=== PATIENT | female | born 1945 | race Caucasian/White ===

== ENCOUNTER 2017-12-23 13:51 | Outpatient (CLI) | payer MEDICARE, OTHER | END 2017-12-23 13:52 | disposition home or self-care (01) | LOC: BICMAMMO 13:51 | PROVIDERS: ATTEND Internal Medicine | DX: Z12.31 Encounter for screening mammogram for malignant neoplasm of breast (principal) | CPT/HCPCS: 77063; 77067 ==

== ENCOUNTER 2019-06-28 13:00 | Outpatient (CLI) | payer MEDICARE ==
--- NOTE | 2019-06-28 13:50 | MMO ---
Bilateral MAMMO Bilat Screen [facility]. CLINICAL HISTORY: Patient is 74 years old and is seen for screening. The patient has no family history of breast cancer. The patient has no personal history of cancer. VIEWS: The views performed were: bilateral craniocaudal with tomosynthesis and bilateral mediolateral oblique with tomosynthesis. FILMS COMPARED: The present examination has been compared to prior imaging studies performed at [facility] on 07/28/2014, 08/22/2015, 10/14/2016 and 12/23/2017. This study has been interpreted with the assistance of computer-aided detection. MAMMOGRAM FINDINGS: There are scattered fibroglandular densities. There are stable benign appearing calcifications seen in both breasts. There are no suspicious masses, suspicious calcifications, or new areas of architectural distortion. IMPRESSION: THERE IS NO MAMMOGRAPHIC EVIDENCE OF MALIGNANCY. A ROUTINE FOLLOW-UP MAMMOGRAM IN 1 YEAR IS RECOMMENDED. THE RESULTS OF THIS EXAM WERE SENT TO THE PATIENT. ACR BI-RADS Category 2 - Benign finding MAMMOGRAPHY NOTE: 1. A negative mammogram report should not delay a biopsy if a dominant of clinically suspicious mass is present. 2. Approximately 10% to 15% of breast cancers are not detected by mammography. 3. Adenosis and dense breasts may obscure an underlying neoplasm. Reported by: ASIM GARCÍA MD Electonically Signed: [id number]
== END 2019-06-28 13:01 | disposition home or self-care (01) ==
LOC: BICMAMMO 13:00
PROVIDERS: ATTEND Internal Medicine
DX: Z12.31 Encounter for screening mammogram for malignant neoplasm of breast (principal)
CPT/HCPCS: 77063; 77067

== ENCOUNTER 2020-03-20 11:34 | Emergency (ER) | payer MEDICARE, OTHER ==
[2020-03-21 12:49] LABS: SARS-CoV-2 MS2 Positive; SARS-CoV-2 N Gene Negative; SARS-CoV-2 S Gene Negative; SARS-CoV-2 orf1ab Negative
== END 2020-03-20 13:00 | disposition home or self-care (01) ==
LOC: ERS 11:34
DX: Z20.828 Contact with and (suspected) exposure to other viral communicable diseases (principal)
CPT/HCPCS: 99283; U0003; 87635

== ENCOUNTER 2020-04-15 16:08 | Observation (INO) | payer MEDICARE, OTHER ==
[~2020-04-15 16:08] MED LIST: Iopamidol-370 76% 500 ML 1 ML ONE
[2020-04-15 17:06] LABS: #Eosinphils 0.1 thou/uL (0.0-0.7); #Lymphocytes 1.7 thou/uL (1.20-3.40); #Monocytes 0.6 thou/uL (0.11-0.59); #Neutrophils 11.1 thou/uL (1.40-6.50); %Basophils 0.4 % (0.0-1.0); %Eosinophils 0.9 % (0.0-10.0); %Lymphocytes 12.3 % (21.0-51.0); %Monocytes 4.3 % (0.0-10.0); %Neutrophils 82.2 % (42.0-75.0); Hemoglobin 15.4 g/dL (12.0-16.0); Mean Corpuscular HGB CONC 33.8 g/dL (32.0-36.0); Mean Corpuscular Volume 91.7 fL (78.0-98.0); Mean Platelet Volume 7.3 fL (7.4-10.4); Platelet Count 282 thou/uL (130-400); RBC Distribution Width 11.9 % (11.5-14.5); Red Blood Cell (RBC) Count 4.97 mill/uL (4.20-5.40); White Blood Cell (WBC) Count 13.5 thou/uL (4.8-10.8)
[2020-04-15] MEDS ORDERED: Nitroglycerin 2% Ointment 1 INCH/1 GM Packet ONE (17:21)
[2020-04-15] MEDS ORDERED: Aspirin 325 MG TAB ONE (17:21)
[2020-04-15 17:25] LABS: Bacteria/HPF 1+ HPF (None Seen); Bilirubin Negative (Negative); Blood, Urine 1+ (Negative); Clarity Clear (Clear); Glucose, Urine (Dipstick) 50 mg/dL (Negative); Ketone, Urine Negative (Negative); Leukocyte Negative Leu/uL (Negative); Nitrite Negative (Negative); Protein, Urine (Dipstick) Negative (Neg-Trace); Squamous Epithelial None Seen HPF (0-3); Urobilinogen Normal mg/dL (Less than 2); WBC/HPF 0-3 HPF (0-3); pH, Urine 7.5 (5.0-9.0)
[2020-04-15 17:27] LABS: ALT (SGPT) 46 U/L (8-55); AST (SGOT) 22 U/L (5-34); Albumin 4.7 g/dL (3.4-4.8); Alkaline Phosphatase 150 U/L (40-110); Anion Gap 11 mmol/L (10-20); BUN (Urea Nitrogen) 12 mg/dL (9.8-20.1); Bilirubin, Total 0.5 mg/dL (0.2-1.2); Calc. Creatinine Clearance 0 mL/min (70-130); Calcium 10.9 mg/dL (7.8-10.44); Carbon Dioxide 30 mmol/L (23-31); Chloride 100 mmol/L (98-107); Estimated GFR-MDRD 68; Globulin 2.9 g/dL (2.4-3.5); Glucose 166 mg/dL (83-110); Potassium 4.2 mmol/L (3.5-5.1); Protein, Total 7.6 g/dL (6.0-8.3); Sodium 137 mmol/L (136-145)
[2020-04-15 17:33] LABS: Lipase 18 U/L (8-78)
[2020-04-15 17:34] LABS: CK (CPK) 36 U/L (29-168)
--- NOTE | 2020-04-15 17:43 | RAD ---
EXAM: Single view of the chest HISTORY: Chest pain and lower abdominal pain COMPARISON: None FINDINGS: Single view of the chest shows an enlarged cardiomediastinal silhouette. Atherosclerotic c alcifications are seen in the aorta. There is no evidence of consolidation, mass, or pleural effusion. The bones are unremarkable IMPRESSION: No evidence of acute cardiopulmonary disease
[2020-04-15] MEDS ORDERED: hydrALAZINE 20 MG/ML VIAL ONE (17:51)
[2020-04-15 18:17] LABS: CKMB 1.4 ng/mL (0-6.6)
--- NOTE | 2020-04-15 18:50 | CT ---
EXAM: CTA of the chest HISTORY: Elevated d-dimer and abdominal pain. Hypertension COMPARISON: None TECHNIQUE: Multiple contiguous axial images were obtained a CTA of the chest with contrast per pulmon ilda embolism protocol. 3-D oblique MIP reformats and direct coronal reformats were performed. FINDINGS: HEART: Normal in size with hypertrophy of the left ventricular wall. Callus cages are seen in the cor onary arteries and aorta. PULMONARY ARTERIES: Normal in caliber without filling defects to suggest pulmonary emboli. MEDIASTINUM: No hilar or mediastinal lymphadenopathy. There is a small hiatal hernia LUNGS: No focal infiltrates or masses. PLEURAL SPACE: No pleural effusion or pneumothorax. CHEST WALL SOFT TISSUES: Unremarkable VISUALIZED OSSEOUS STRUCTURES: Degenerative changes in the spine. VISUALIZED SUBDIAPHRAGMATIC STRUCTURES: Diffuse fatty infiltration of the liver. Status post cholecys tectomy. IMPRESSION: 1. No evidence of pulmonary thromboembolism 2. Fatty liver 3. Hiatal hernia
[2020-04-15 20:17] LABS: Troponin I 0.204 ng/mL (< 0.028)
[2020-04-15] MEDS ORDERED: Enoxaparin Sodium 80 MG/0.8 ML SYRINGE ONE (20:23)
[2020-04-15] MEDS ORDERED: Acetaminophen 325 MG TAB PO PRN (20:35)
[2020-04-15] MEDS ORDERED: Acetaminophen 650 MG Suppository PR PRN (20:35)
[2020-04-15] MEDS ORDERED: hydrALAZINE 20 MG/ML VIAL SLOW IVP PRN (20:41)
--- NOTE | 2020-04-15 21:54 | HP ---
TIME OF ASSESSMENT: 1899 PRIMARY CARE PHYSICIAN: Dr. Issa Fischer. CHIEF COMPLAINT: Fatigue and vomiting. HISTORY OF PRESENT ILLNESS: Ms. Posey is a 74-year-old woman, who presented to the emergency department with nausea and vomiting that started earlier today and reports feeling completely tired. The patient states she felt she might be coming down with a urine infection due to discomfort in the left lower abdominal region since yesterday. Her pain was radiating over to the right side earlier today, but has since subsided. She reports having suprapubic discomfort when urinating as well, but did not note any hematuria. Denies any fevers. The patient states she has had a UTI in the past, but it has been several years. Earlier today, she has suddenly became extremely tired and then felt nauseated. She reports vomiting 3 times, but denies having any abdominal discomfort or feeling unwell when she vomited. No hematemesis. Denies any unusual changes with her stools recently. The patient thought her symptoms were associated with UTI and therefore opted to come into the emergency department. Her was unable to bring her due to having severe peripheral neuropathy and therefore she came in via ambulance. The patient was noted to have hypertensive urgency with a systolic blood pressure in the 250s per vitals taken by EMS. On arrival to the emergency department, she had a blood pressure of 212/97. Her blood pressure has since normalized and is now 164/74. She was given hydralazine 10 mg IV, also started on Nitro-Bid and given 324 mg of aspirin due to laboratory studies being notable for an indeterminate troponin of 0.065. Second troponin was slightly further elevated at 0.04, which prompted ED to administer Lovenox 1 mg/kg. The patient was given 500 mL of normal saline. Of note, EKG done in the emergency department showed sinus bradycardia with a rate of 51. No ST changes or T-wave abnormalities. Laboratory studies were also notable for a white count of 13.5, hemoglobin 15.4, hematocrit 45.5, platelets , neutrophils 82.2%. D-dimer slightly elevated at 0.49. Calcium 10.9, glucose 166, alkaline phosphatase 115. BNP 76.2. Lipase 18. LFTs unremarkable. CT angiogram of the chest was done showing no evidence of PE. She was noted to have a fatty liver and a hiatal hernia. Urinalysis showed 1+ blood, 7 to 10 red blood cells, and 1+ bacteria. Otherwise, no nitrites or leukocyte esterase and no white blood cells. PAST MEDICAL HISTORY: 1. Arthritis. 2. History of UTIs. 3. Hip pain. 4. Hypertension. PAST SURGICAL HISTORY: 1. Cholecystectomy. 2. Hysterectomy. SOCIAL HISTORY: The patient reports social drinking. Denies any tobacco use or illicit drug use. PHYSICAL EXAMINATION: GENERAL: The patient appears well developed, well nourished. She is in no acute distress. She is found resting comfortably on the stretcher. VITAL SIGNS: Temperature 98.7, pulse 72, blood pressure 164/74, respirations 12, and O2 saturation 100% on room air. HEENT: Normocephalic and atraumatic. Pupils are equal, round, and reactive to light. No scleral icterus. Oropharynx is clear. NECK: Supple. LUNGS: Clear to auscultation bilaterally without any wheezes, rales, or rhonchi. CARDIAC: Regular rate and rhythm without audible murmurs, rubs, or gallops. ABDOMEN: Soft, nontender, nondistended. Normoactive bowel sounds present. No guarding. No rigidity. No renal angle tenderness. EXTREMITIES: No lower leg swelling, no edema. NEUROLOGIC: Alert and oriented x3. SKIN: Warm and dry. INVESTIGATIONS: As mentioned above in the HPI. IMPRESSION AND PLAN: Ms. Posey is a 74-year-old woman, who is being admitted for the management of the following. 1. Hypertensive urgency. Blood pressure is significantly improved with Nitro-Bid and hydralazine. Blood pressure has normalized and patient is asymptomatic at present. We will continue to monitor blood pressure and reconcile home medications once verified. 2. Elevated troponin. Second troponin further bumped to 0.204. It appears the ED physician has started Lovenox 1 mg/kg. The patient denies ever experiencing any chest pain. EKG unremarkable. She will need continuous cardiac monitoring. We will continue to trend her troponin. We will plan to keep her n.p.o. after midnight. We will place a consultation with Cardiology for review in the morning. 3. Nausea and vomiting. Has resolved. We will continue Zofran p.r.n. LFTs unremarkable including lipase. 4. Hypertension. As mentioned above. We will monitor blood pressure and reconcile home medications once verified. 5. Gastrointestinal prophylaxis. We will give famotidine. 6. Deep venous thrombosis prophylaxis. Walking program consulted and mechanical SCDs ordered. 7. Code status, full. Surrogate decision maker is her Mariano Posey. Case discussed with attending, who agrees with plan of care as described above. Job ID: [id number]
[2020-04-15 22:33] VITALS: BMI 29.5
[2020-04-15] MEDS ORDERED: Famotidine 20 MG TAB PO SCH (22:45)
[2020-04-16 04:46] LABS: #Lymphocytes 2.9 thou/uL (1.20-3.40); #Monocytes 0.9 thou/uL (0.11-0.59); #Neutrophils 6.9 thou/uL (1.40-6.50); %Basophils 0.4 % (0.0-1.0); %Eosinophils 0.4 % (0.0-10.0); %Monocytes 8.5 % (0.0-10.0); %Neutrophils 63.7 % (42.0-75.0); Hemoglobin 13.3 g/dL (12.0-16.0); Mean Corpuscular HGB CONC 34.6 g/dL (32.0-36.0); Mean Corpuscular Volume 92.4 fL (78.0-98.0); Mean Platelet Volume 7.6 fL (7.4-10.4); Platelet Count 236 thou/uL (130-400); Red Blood Cell (RBC) Count 4.15 mill/uL (4.20-5.40); White Blood Cell (WBC) Count 10.8 thou/uL (4.8-10.8)
[2020-04-16 05:06] LABS: Anion Gap 12 mmol/L (10-20); BUN (Urea Nitrogen) 14 mg/dL (9.8-20.1); Calc. Creatinine Clearance 89 mL/min (70-130); Calcium 10.1 mg/dL (7.8-10.44); Carbon Dioxide 24 mmol/L (23-31); Chloride 104 mmol/L (98-107); Estimated GFR-MDRD 86; Glucose 93 mg/dL (83-110); Potassium 3.7 mmol/L (3.5-5.1); Sodium 136 mmol/L (136-145)
[2020-04-16 05:30] LABS: CKMB 1.5 ng/mL (0-6.6)
--- NOTE | 2020-04-16 08:19 | PDOC.HOSPP ---
- Subjective Encounter Date: 04/16/20 Encounter Time: 08:06 Subjective: no chest pain or sob - Objective Vital Signs & Weight: Vital Signs (12 hours) Temp Pulse Resp BP Pulse Ox 04/16/20 07:50 98.4 F 66 15 137/64 04/16/20 03:28 99.1 F 68 16 130/63 94 L 04/16/20 00:00 75 04/15/20 22:18 98.9 F 74 16 150/72 H 95 Weight Weight 171 lb 12.8 oz I&O: 04/15/20 04/16/20 04/17/20 06:59 06:59 06:59 Intake Total 480 Output Total 550 Balance -70 Result Diagrams: 04/16/20 03:52 04/16/20 03:52 - Exam General Appearance: awake alert Neck: no JVD Heart: RRR, no murmur Respiratory: CTAB Gastrointestinal: non-tender, normal bowel sounds Extremities: no edema Hosp A/P (1) Hypertensive urgency Code(s): I16.0 - HYPERTENSIVE URGENCY Status: Acute (2) Elevated troponin I level Code(s): R79.89 - OTHER SPECIFIED ABNORMAL FINDINGS OF BLOOD CHEMISTRY Status : Chronic (3) Essential tremor Code(s): G25.0 - ESSENTIAL TREMOR Status: Chronic (4) Pelvic and perineal pain Code(s): R10.2 - PELVIC AND PERINEAL PAIN Status: Acute - Plan cardiology eval pending selected home meds
[2020-04-16] MEDS ORDERED: Propranolol HCl LA 60 MG CAP PO SCH (09:00)
[2020-04-16] MEDS ORDERED: Famotidine 20 MG TAB PO SCH (09:00)
[2020-04-16] MEDS ORDERED: Calcium Carbonate 600 MG TAB PO SCH (09:00)
[2020-04-16] MEDS ORDERED: Venlafaxine HCl XR 75 MG CAP PO SCH (09:00)
[2020-04-16 09:48] LABS: CKMB 1.2 ng/mL (0-6.6)
[2020-04-16] MEDS ORDERED: Regadenoson 0.4 MG/5 ML SYRINGE ONE (11:08)
[2020-04-16 11:55] LABS: SARS-CoV-2 MS2 Positive; SARS-CoV-2 N Gene Negative; SARS-CoV-2 S Gene Negative; SARS-CoV-2 by NAA Not Detected (NotDetected); SARS-CoV-2 orf1ab Negative
[2020-04-16 14:40] VITALS: BP 183/84; TEMP 98.1
--- NOTE | 2020-04-16 15:03 | NM ---
CARDIAC SPECT: CLINICAL HISTORY: 74-year-old female with chest pain and hypertension. TECHNIQUE: A myocardial perfusion scan was performed using the single isotope one day protocol with technetium-9 9m sestamibi. 10 mCi were injected intravenously for the rest exam followed by 27 mCi for the stress exam. Pharmacologic stress with Lexiscan was monitored and interpreted by Ilda Winkler NP. FINDINGS: Homogeneous tracer distribution is seen in the myocardial segments on stress and rest images without fixed or reversible defects. GATED SPECT LVEF: 91%. WALL MOTION EXAM: Normal. IMPRESSION: Normal myocardial perfusion scan. POS: MYLES
[2020-04-16] MEDS: Primidone 50 MG TAB PO SCH ×2 (17:37→17:39)
--- NOTE | 2020-04-16 18:10 | CON ---
DATE OF CONSULTATION: PRIMARY CARE DOCTOR: Dr. Issa Fischer. PRIMARY FOAM DISPENSER: Dr. Eloise Lancaster. PRIMARY GI DOCTOR: Dr. Ocampo. PRIMARY ORTHO DOCTOR: Dr. Strickland. REASON FOR CARDIOLOGY CONSULT: Chest pain and elevated troponin. HISTORY OF PRESENT ILLNESS: Ms. Posey is a very present 74-year-old female with significant history of hypertension, hyperlipidemia, GERD, and essential tremor with propranolol. The patient was doing relatively well until yesterday , the patient started having burning sensation to the lower part of abdomen, especially feeling burning when she urinates since last Thursday. Also, the patient was feeling very tired all day yesterday, especially after she vomited 3 times yesterday. Due to that reasons, the patient decided to present to the emergency department for further evaluation. The patient was found to have elevated blood pressure. After she received Nitropaste and hydralazine, the patient's Systolic blood pressure went down to 140 to 160s. The patient denies chest pain, heaviness, tightness, shortness of breath, dizziness, lightheadedness, or any other cardiac complaints during the episode. The patient does not check the vital signs at home. However, the patient had annual physical checkup by Dr. Fischer a couple of weeks ago. The patient was told that the patient's vital signs, lab, and everything were within normal range. She was never seen by a cook larder before. She never had a stress test or echo in the past. At this moment, the patient denied any cardiac complaints. She continued having this mild discomfort in the lower abdomen area. MEDICAL HISTORY: Hypertension, hyperlipidemia, GERD, essential tremor, the patient is taking propranolol for quite some time. SURGICAL HISTORY: The patient has history of left ankle fracture repair, cholecystectomy, and partial hysterectomy. FAMILY HISTORY: There is significant cardiac family history in the maternal side. The patient's mother had a CABG at the age of 81. The patient's uncle on the maternal side had a CABG at age of 50. The patient's grandmother on the maternal side has a CVA. SOCIAL HISTORY: She is . She has 2 children, who are living well. No congenital problem. She drinks occasional wine, like once a week most. She denied tobacco or illicit drug abuse. She exercises at least twice a day with a color strainer. Last exercise was last week without any cardiac complaints. ALLERGIES: NO KNOWN DRUG ALLERGIES. HOME MEDICATIONS: 1. Aspirin 81 mg once a day. 2. Propranolol 120 mg once a day for tremor. 3. Mobic 7.5 mg once a day. 4. Dexilant 30 mg once a day. 5. Atorvastatin 40 mg once a day. 6. Primidone 50 mg three times a day. 7. Mirabegron 50 mg at night. 8. Lisinopril 10 mg once a day. 9. Desvenlafaxine 50 mg once a day. 10. Calcium 600 mg twice a day. REVIEW OF SYSTEMS: A 12-point review of systems negative unless otherwise mentioned in HPI. PHYSICAL EXAMINATION: VITAL SIGNS: Blood pressure 137/64, temperature 98.4, pulse is 66 and sinus rhythm, respiratory rate is 15. GENERAL: The patient is alert and oriented x4, not in acute distress. HEAD: Normocephalic and atraumatic. EYES: Extraocular muscle movements are intact. ENT AND MOUTH: Oral and nasal mucosa moist without lesion. NECK: Supple. Normal range of motion. No JVD. Carotid pulses are present without bruit or thrill. RESPIRATORY: Clear to auscultate bilaterally. No wheezing, rales, or rhonchi noted. CARDIOVASCULAR: Regular rate and rhythm. Normal S1 and S2. There is no S3 or S4. No significant murmur, heaves, or thrill noted. 2+ pulses in bilateral upper and lower extremities. No edema in the lower extremities. ABDOMEN: Soft, nontender. No mass to palpate except on palpation in the lower extremities, the patient continued having discomfort, mild discomfort with palpation. SKIN: Warm and dry. No lesion, rash, or erythema noted. MUSCULOSKELETAL: The patient was able to move all extremities. The patient denied claudication. NEUROLOGIC: The patient is alert and oriented x4. Nonfocal. PSYCHIATRIC: The patient's mood is appropriate. LABORATORY DATA: WBC 10.8, hemoglobin 13.3, hematocrit 38.3, platelets 236. D-dimer 0.49. Sodium 136, potassium 3.7, BUN 14, creatinine 0.67, glucose 93, calcium 10.1, magnesium 1.7, AST 22, ALT 46. CK-MB 1.5 and 1.2. Troponins 0.065, 0.204, 0.250, 0.213, and 0.173. UA is negative. COVID-19 is negative. The patient had a CT angio for elevated D-dimer, showing no evidence of pulmonary thrombosis , and fatty liver and hiatal hernia. The patient's chest x-ray shows no evidence of acute cardiopulmonary disease. The patient's EKG showed sinus rhythm without any ST-segment change or T-wave inversion. ASSESSMENT AND PLAN: 1. Elevated troponin level, possibly due to hypertensive urgency or nausea x3 prior to this admission. The patient is asymptomatic. She could exercise with a color strainer until last week. The patient states that exercise with the color strainer is usually really intensive, but she denies any cardiac complaints during the exercise. However, due to history of hypertension and a very strong family history of coronary artery disease, the patient is going to undergo stress test today to rule out any further cardiac problem. At this moment, the patient is asymptomatic. 2. Hypertensive urgency. The patient's blood pressure is stable at this moment with current medication. She is on lisinopril 10 mg once a day and hydralazine p.r.n. and propranolol 120 mg once a day for tremor and also the patient's blood pressure management. 3. Hyperlipidemia. She is on atorvastatin 40 mg once a day. 4. Gastroesophageal reflux disease. At this moment, the patient denied any nausea or vomiting. She is on Protonix 40 mg. 5. Essential tremor. She is on propranolol 120 mg once a day. We would like to defer to the primary care doctor. 6. Fatty liver. The patient's CTA shows the patient has a fatty liver. The patient's LFT has been within normal range. The patient is asymptomatic. We would like to defer to the patient's primary care doctor or Dr. Ocampo for further evaluation. Thank you very much for Cardiology Service cardiology consult request to participate of care of the patient. We would like to follow the patient's care team and make further recommendations as appropriate. Job ID: [id number] [facility]
--- NOTE | 2020-04-16 19:05 | DIS ---
DATE OF ADMISSION: 04/15/2020 DATE OF DISCHARGE: 04/16/2020 PRIMARY CARE PROVIDER: Dr. Issa Fischer. FINAL DIAGNOSES: Hypertensive emergency, elevated troponin, perineal pain, essential tremor. DISCHARGE MEDICATIONS: Usual; 1. Primidone 50 mg three times a day. 2. Propranolol 120 mg a day. 3. Mobic 7.5 mg a day. 4. Dexilant 30 mg a day. 5. Test venlafaxine ER 50 mg a day. 6. Atorvastatin 40 mg a day. 7. Aspirin 81 mg a day. 8. Myrbetriq 50 mg a day. 9. Prinivil 10 mg a day. ALLERGIES: NO KNOWN DRUG ALLERGIES. DIET: Heart healthy diet. PENDING AT TIME OF DISCHARGE: Nothing. CODE STATUS: Full. HOSPITAL COURSE: The patient presented to the emergency room with a constellation of symptoms, fatigue, nausea, vomiting, some urinary tract pain, which is subsided. Her exam revealed elevated blood pressure in the ER. Laboratory, incidentally COVID negative. White cell count 13.5, followup 10.8, hemoglobin 15.4 and 13.3, platelet count 282,000 and 236,000. D-dimer elevated at 0.49. She had elevated calcium 10.9, followup 10.1. Basic metabolic panel normal. Troponin 0.25, 0.21, 0.17. Urine showed no white cells, no esterase, etc. Urine culture preliminary is less than 10,000 mixed skin meka. Nuclear medicine stress test was done which was normal. Consultation by Cardiology agreed with stress test, nothing else was recommended. Blood pressure has been stable since she has been in the hospital 150/72, 130/63, 137/74. She feels fine. I have discussed discharge with her and follow up with Dr. Fischer in 3 days, she is comfortable with that. Job ID: [id number]
[2020-04-16] MEDS ORDERED: Atorvastatin Calcium 40 MG TAB PO SCH (21:00)
[2020-04-16] MEDS ORDERED: Lisinopril 10 MG TAB PO SCH (21:00)
--- NOTE | 2020-04-16 23:35 | CON ---
DATE OF CONSULTATION: 04/16/2020 Also, please refer to the notes already dictated by my nurse practitioner. INDICATION FOR CONSULTATION: A 74-year-old female who had a slightly abnormal cardiac enzymes and hypertension. HISTORY OF PRESENT ILLNESS: This is a 74-year-old female who has had no previous cardiac history, but has been treated for hypertension in the past. I noticed that she was having some lower abdominal or suprapubic discomfort. She thought she had a urinary tract infection. This apparently has not been noted. She had no hematuria and no significant abnormalities. As far as urinalysis was concerned, she possibly has some bladder spasms. However, she presented to the emergency room, was admitted due to the discomfort and also because she had a slight elevation of the cardiac enzymes. Her troponin I was increased and I believe it up to 0.25, it has now decreased back down to 0.173. She underwent a nuclear stress test today which showed no evidence of ischemia with normal ejection fraction. No evidence of wall motion abnormalities. Her EKG was unremarkable. No indication of ischemia. Her BNP was within normal limits. There is no indication that she had any cardiac abnormalities. The CT angiogram of the chest did not show any evidence of pulmonary emboli. Please refer to, for past medical history, social history, family history, review of systems, medications, allergies, the note dictated by my nurse practitioner. PHYSICAL EXAMINATION: GENERAL: Reveals a well-developed, well-nourished, very pleasant female. VITAL SIGNS: Blood pressure is 183/84 at this time, earlier today it was 137/64, heart rate is in the 80s and it shows a sinus rhythm, respiratory rate 14, O2 saturation 98%. She is afebrile. HEENT: Unremarkable. She has no evidence of trauma. Carotid pulses are present without bruits. CHEST: Clear to auscultation without any rales, rhonchi, or wheezing. CARDIOVASCULAR: Reveals a regular rate and rhythm. Normal S1, S2. I do not hear any significant murmurs, heaves, thrills, bruits, or rubs. ABDOMEN: Soft. She did have some mild tenderness in the suprapubic area. There are no palpable masses. Bowel sounds are present. EXTREMITIES: Show no clubbing, cyanosis, or edema. Pedal pulses are present. SKIN: Warm and dry. NEUROLOGIC: She appears to be fully intact. IMPRESSION AND PLAN: Episode of hypertension of uncertain etiology with some nausea and vomiting, uncertain as to which one came first. Her blood pressure has been elevated. We will need to manage her blood pressure medicines and then most likely the patient can be discharged to home, this could be managed as an outpatient unless she becomes significantly elevated. I am not sure if she has had her daily medicines today or not. She had her medications at home, she was taking lisinopril for the blood pressure, she also takes atorvastatin for dyslipidemia and also propranolol for her essential tremors. Overall, cardiac status appears to be stable. I do not see any indication for any further evaluation at this time since the stress test was unremarkable and she denied any chest pain or shortness of breath at the time of the episode with elevated blood pressure. At this time from a cardiac standpoint, she is stable and I will sign out of her case unless she has problems with hypertension that cannot be controlled by the primary service. For her other medical problems, please refer to the notes dictated. Her nausea and vomiting have resolved. She has no further complaints of nausea. Job ID: [id number]
== END 2020-04-16 19:30 | disposition home or self-care (01) ==
LOC: ERS 16:08 → 2NO 22:30
PROVIDERS: ADMIT Internal Medicine; ATTEND Internal Medicine
DX: I16.1 Hypertensive emergency (principal); G25.0 Essential tremor; R79.89 Other specified abnormal findings of blood chemistry; R10.2 Pelvic and perineal pain; I10 Essential (primary) hypertension; E78.5 Hyperlipidemia, unspecified; K21.9 Gastro-esophageal reflux disease without esophagitis; Z79.82 Long term (current) use of aspirin; Z79.899 Other long term (current) drug therapy
CPT/HCPCS: 71045; 71275; 78452; 80048; 80053; 82550; 82553 ×2; 82962; 83690; 83735; 83880; 84484 ×4; 85025 ×2; 85379; 87086; 93005; 93017; 96361; 96372; 96374; 97139; 99285; A9500; U0003; 36415; 36416; 81003; 81015; 87635; G0378; J0360; J1650; J2785; Q9967

== ENCOUNTER 2021-04-21 16:37 | Emergency (ER) | payer MEDICARE ==
[2021-04-21 17:02] LABS: #Basophils 0.1 thou/uL (0.0-0.2); #Eosinphils 0.2 thou/uL (0.0-0.7); #Lymphocytes 2.5 thou/uL (1.20-3.40); #Monocytes 0.7 thou/uL (0.11-0.59); #Neutrophils 4.6 thou/uL (1.40-6.50); %Basophils 0.9 % (0.0-1.0); %Eosinophils 2.5 % (0.0-10.0); %Lymphocytes 30.7 % (21.0-51.0); %Neutrophils 56.8 % (42.0-75.0); Hemoglobin 13.2 g/dL (12.0-16.0); Mean Corpuscular HGB CONC 35.3 g/dL (32.0-36.0); Mean Corpuscular Hemoglobin 32.1 pg (27.0-31.0); Mean Corpuscular Volume 90.9 fL (78.0-98.0); Mean Platelet Volume 7.1 fL (7.4-10.4); Platelet Count 235 thou/uL (130-400); RBC Distribution Width 12.1 % (11.5-14.5); Red Blood Cell (RBC) Count 4.11 mill/uL (4.20-5.40)
[2021-04-21 17:13] LABS: PTT 25.3 sec (22.9-36.1); Prothrombin Time 13.4 sec (12.0-14.7)
[2021-04-21 17:24] LABS: ALT (SGPT) 87 U/L (8-55); AST (SGOT) 50 U/L (5-34); Albumin 3.9 g/dL (3.4-4.8); Alkaline Phosphatase 94 U/L (40-110); Anion Gap 12 mmol/L (10-20); BUN (Urea Nitrogen) 13 mg/dL (9.8-20.1); Bilirubin, Total 0.3 mg/dL (0.2-1.2); Calc. Creatinine Clearance 0 mL/min (70-130); Calcium 10.5 mg/dL (7.8-10.44); Carbon Dioxide 23 mmol/L (23-31); Chloride 104 mmol/L (98-107); Globulin 2.8 g/dL (2.4-3.5); Glucose 108 mg/dL (83-110); Potassium 4.8 mmol/L (3.5-5.1); Protein, Total 6.7 g/dL (5.8-8.1); Sodium 134 mmol/L (136-145)
== END 2021-04-21 18:50 | disposition home or self-care (01) ==
LOC: ERS 16:37
DX: R53.1 Weakness (principal); R20.0 Anesthesia of skin; R20.2 Paresthesia of skin; M19.90 Unspecified osteoarthritis, unspecified site; Z79.84 Long term (current) use of oral hypoglycemic drugs; Z79.899 Other long term (current) drug therapy
CPT/HCPCS: 36416; 70450; 71045; 80053; 84484; 85025; 85610; 85730; 93005; 94760

== ENCOUNTER 2023-01-07 19:09 | Emergency (ER) | payer MEDICARE ==
[2023-01-07] MEDS ORDERED: Morphine 4 MG/ML VIAL ONE (21:18)
[2023-01-07] MEDS ORDERED: Ondansetron PF 4 MG/2 ML Vial ONE (21:18)
[2023-01-07] MEDS ORDERED: Ondansetron ODT 4 MG TAB ONE (21:35)
== END 2023-01-07 21:45 | disposition home or self-care (01) ==
LOC: ERS 19:09
DX: S52.022A Displaced fracture of olecranon process without intraarticular extension of left ulna, initial encounter for closed fracture (principal); S42.402A Unspecified fracture of lower end of left humerus, initial encounter for closed fracture; I10 Essential (primary) hypertension; E78.5 Hyperlipidemia, unspecified; Z86.73 Personal history of transient ischemic attack (TIA), and cerebral infarction without residual deficits; Z79.82 Long term (current) use of aspirin; Z79.899 Other long term (current) drug therapy; W17.89XA Other fall from one level to another, initial encounter
CPT/HCPCS: 29105; 70450; 72125; 96372; J2270; J2405; Q0162

== ENCOUNTER 2023-01-15 13:02 | Outpatient (CLI) | payer MEDICARE | END 2023-01-15 13:03 | disposition home or self-care (01) | LOC: CT 13:02 | PROVIDERS: ATTEND Orthopaedic Surgery | DX: S42.432A Displaced fracture (avulsion) of lateral epicondyle of left humerus, initial encounter for closed fracture (principal); S52.125A Nondisplaced fracture of head of left radius, initial encounter for closed fracture; S52.022A Displaced fracture of olecranon process without intraarticular extension of left ulna, initial encounter for closed fracture ==

== ENCOUNTER 2023-01-20 14:09 | Outpatient (CLI) | payer MEDICARE ==
[2023-01-20 15:48] LABS: #Basophils 0.1 10x3/uL (0.0-0.2); #Eosinphils 0.2 10x3/uL (0.0-0.5); #Monocytes 0.5 10x3/uL (0.0-1.1); #Neutrophils 3.6 10x3/uL (1.5-8.4); %Eosinophils 2.5 % (0.0-6.0); %Lymphocytes 27.4 % (18.0-47.0); %Monocytes 8.8 % (0.0-10.0); %Neutrophils 60.1 % (40.0-75.0); Mean Corpuscular HGB CONC 33.2 g/dL (32.0-36.0); Mean Corpuscular Hemoglobin 30.2 pg (27.0-33.0); Mean Corpuscular Volume 90.9 fl (81.6-98.3); Platelet Count 299 10x3/uL (150-450); RBC Distribution Width 13.2 % (11.5-14.5); Red Blood Cell (RBC) Count 3.97 10x6/uL (3.90-5.03); White Blood Cell (WBC) Count 5.9 10x3/uL (3.5-10.5)
[2023-01-20 15:57] LABS: Prothrombin Time 10.3 sec (9.5-12.1)
[2023-01-20 16:04] LABS: Anion Gap 14 mmol/L (10-20); BUN (Urea Nitrogen) 13 mg/dL (9.8-20.1); Calc. Creatinine Clearance 0 mL/min (70-130); Calcium 10.4 mg/dL (7.8-10.44); Carbon Dioxide 24 mmol/L (23-31); Chloride 107 mmol/L (98-107); Estimated GFR 81; Glucose 123 mg/dL (83-110); Potassium 3.8 mmol/L (3.5-5.1); Sodium 141 mmol/L (136-145)
== END 2023-01-20 14:10 | disposition home or self-care (01) ==
LOC: LABBT 14:09
PROVIDERS: ATTEND Orthopaedic Surgery
DX: Z01.818 Encounter for other preprocedural examination (principal); S42.432A Displaced fracture (avulsion) of lateral epicondyle of left humerus, initial encounter for closed fracture
CPT/HCPCS: 80048; 85025; 85610; 93005; 93010

== ENCOUNTER 2023-01-22 07:13 | Observation (INO) | payer MEDICARE ==
[2023-01-20 15:28] VITALS: BMI 28.3
[2023-01-22] MEDS ORDERED: CEFAZOLIN 2 GM VIAL ONE (08:25)
[2023-01-22] MEDS ORDERED: Lidocaine 1% MPF 2 ML VIAL ONE (08:26)
[2023-01-22] MEDS ORDERED: Sodium Chloride 0.9% 100 ML ONE (08:26)
[2023-01-22] MEDS ORDERED: fentaNYL PF 100 MCG/2 ML SYRINGE ONE ×2 (09:40→09:41)
[2023-01-22] MEDS ORDERED: Sevoflurane 250 ML INH ANEST BOTTLE ONE (09:47)
[2023-01-22] MEDS ORDERED: Lidocaine 1% PF 5 ML VIAL ONE (10:09)
[2023-01-22] MEDS ORDERED: Ondansetron PF 4 MG/2 ML Vial ONE (10:09)
[2023-01-22] MEDS ORDERED: Dexamethasone 20 MG/5 ML VIAL ONE (10:09)
[2023-01-22] MEDS ORDERED: Glycopyrrolate 0.2 MG/ML 5 ML SYRINGE ONE (10:09)
[2023-01-22] MEDS ORDERED: PROPOFOL 200 MG/20 ML VIAL ONE (10:09)
[2023-01-22] MEDS ORDERED: Rocuronium Bromide 10 MG/ML (10ML VIAL) ONE (10:09)
[2023-01-22] MEDS ORDERED: NEOSTIGMINE 3 MG/3 ML SYR 3 MG/3 ML SYRINGE ONE (10:09)
[2023-01-22] MEDS ORDERED: Bupivacaine HCl 0.5%/Epinephrine 1:200,000/PF 30 ml Vial ONE (12:16)
[2023-01-22] MEDS ORDERED: fentaNYL 50 mcg/mL 1 mL Vial ONE ×2 (12:33→14:17)
[2023-01-22] MEDS ORDERED: Ropivacaine 0.5% HCl/PF (150 MG/30 ML VIAL) ONE (13:25)
[2023-01-22] MEDS ORDERED: oxyCODONE 5 MG TAB PO PRN ×2 (13:51)
[2023-01-22] MEDS ORDERED: traMADol HCl 50 MG TAB PO PRN ×4 (13:52→14:55)
[2023-01-22] MEDS ORDERED: fentaNYL 50 mcg/mL 1 mL Vial SLOW IVP PRN (13:53)
[2023-01-22] MEDS ORDERED: Milk Of Magnesia 30 ML UDCUP PO PRN (14:55)
[2023-01-22] MEDS ORDERED: HYDROcodone/Acetaminophen 5/325 mg Tablet PO PRN (14:55)
[2023-01-22] MEDS ORDERED: Morphine 2 MG/ML VIAL SLOW IVP PRN (14:55)
[2023-01-22] MEDS ORDERED: Acetaminophen 325 MG TAB PO PRN (14:55)
[2023-01-22] MEDS ORDERED: Promethazine HCl 25 MG/ML VIAL IM PRN (14:55)
[2023-01-22] MEDS ORDERED: Ondansetron PF 4 MG/2 ML Vial SLOW IVP PRN (14:55)
[2023-01-22] MEDS ORDERED: Bisacodyl 10 MG SUPP PR PRN (14:55)
[2023-01-22] MEDS: Acetaminophen 325 MG TAB PO SCH ×3 (15:23→20:18)
[2023-01-22] MEDS: Ketorolac Tromethamine 30 MG/ML VIAL IVP SCH ×2 (15:23→20:17)
[2023-01-22] MEDS: CEFAZOLIN 2 GM in Sodium Chloride 0.9% 100 ML IVPB SCH ×2 (16:21→23:11)
[2023-01-22] MEDS: HYDROcodone/Acetaminophen 5/325 mg Tablet PO PRN ×2 (17:21→21:34)
[2023-01-23] MEDS: Acetaminophen 325 MG TAB PO SCH ×3 (02:00→10:44)
[2023-01-23] MEDS: Ketorolac Tromethamine 30 MG/ML VIAL IVP SCH ×2 (03:15→09:09)
[2023-01-23 08:22] VITALS: BP 134/74; TEMP 98
[2023-01-23] MEDS: HYDROcodone/Acetaminophen 5/325 mg Tablet PO PRN (09:10)
== END 2023-01-23 11:30 | disposition home or self-care (01) ==
LOC: SDC 07:13 → SURG B 14:53
PROVIDERS: ADMIT Orthopaedic Surgery; ATTEND Orthopaedic Surgery
PROC: 0PSL04Z Reposition Left Ulna with Internal Fixation Device, Open Approach (ICD-10-PCS; principal; 2023-01-22)
PROC: 0PSG04Z Reposition Left Humeral Shaft with Internal Fixation Device, Open Approach (ICD-10-PCS; 2023-01-22)
DX: S42.432A Displaced fracture (avulsion) of lateral epicondyle of left humerus, initial encounter for closed fracture (principal); S52.022A Displaced fracture of olecranon process without intraarticular extension of left ulna, initial encounter for closed fracture; S52.132A Displaced fracture of neck of left radius, initial encounter for closed fracture; S42.452A Displaced fracture of lateral condyle of left humerus, initial encounter for closed fracture; E78.00 Pure hypercholesterolemia, unspecified; I10 Essential (primary) hypertension; K21.9 Gastro-esophageal reflux disease without esophagitis; Z86.73 Personal history of transient ischemic attack (TIA), and cerebral infarction without residual deficits; Z79.01 Long term (current) use of anticoagulants; Z79.82 Long term (current) use of aspirin; Z79.84 Long term (current) use of oral hypoglycemic drugs; Z79.899 Other long term (current) drug therapy; W19.XXXA Unspecified fall, initial encounter
CPT/HCPCS: 24575; 24685; 73070; 96374; 96375; 96376 ×2; C1713 ×2; C1769; G0378 ×2; J3010; J1100; J1885; J2405; J2704; J2795; J3490

== ENCOUNTER 2023-08-09 20:22 | Emergency (ER) | payer MEDICARE ==
[2023-08-09 21:13] LABS: #Basophils 0.1 thou/uL (0.0-0.2); #Eosinphils 0.2 thou/uL (0.0-0.7); #Monocytes 0.7 thou/uL (0.11-0.59); #Neutrophils 4.3 thou/uL (1.40-6.50); %Basophils 0.8 % (0.0-1.0); %Lymphocytes 29.7 % (21.0-51.0); %Monocytes 9.4 % (0.0-10.0); %Neutrophils 57.8 % (42.0-75.0); Hematocrit 42.6 % (36.0-47.0); Hemoglobin 14.4 g/dL (12.0-16.0); Mean Corpuscular HGB CONC 33.8 g/dL (32.0-36.0); Mean Corpuscular Hemoglobin 30.9 pg (27.0-31.0); Mean Corpuscular Volume 91.4 fl (78.0-98.0); Platelet Count 258 10x3/uL (130-400); RBC Distribution Width 12.5 % (11.5-14.5); Red Blood Cell (RBC) Count 4.66 mill/uL (4.20-5.40); White Blood Cell (WBC) Count 7.4 10x3/uL (4.8-10.8)
[2023-08-09] MEDS ORDERED: Lidocaine 1% PF 5 ML VIAL ONE (21:32)
[2023-08-09 21:34] LABS: ALT (SGPT) 33 U/L (8-55); AST (SGOT) 19 U/L (5-34); Albumin 4.3 g/dL (3.4-4.8); Alkaline Phosphatase 132 U/L (40-110); Anion Gap 14 mmol/L (10-20); BUN (Urea Nitrogen) 15 mg/dL (9.8-20.1); Bilirubin, Total 0.3 mg/dL (0.2-1.2); Calc. Creatinine Clearance 0 mL/min (70-130); Calcium 10.8 mg/dL (7.8-10.44); Carbon Dioxide 24 mmol/L (23-31); Chloride 103 mmol/L (98-107); Estimated GFR 80; Globulin 2.7 g/dL (2.4-3.5); Glucose 122 mg/dL (83-110); Potassium 3.9 mmol/L (3.5-5.1); Sodium 137 mmol/L (136-145)
[2023-08-09] MEDS ORDERED: CEFAZOLIN 1 GM VIAL ONE (21:48)
[2023-08-09] MEDS ORDERED: Morphine 4 MG/ML VIAL ONE (21:48)
[2023-08-09] MEDS ORDERED: Ondansetron PF 4 MG/2 ML Vial ONE ×2 (21:48→22:19)
[2023-08-09] MEDS ORDERED: Labetalol HCl 100 MG/20 ML VIAL ONE (21:48)
[2023-08-09] MEDS ORDERED: Sodium Chloride 0.9% 100 ML ONE (21:49)
== END 2023-08-09 23:09 | disposition home or self-care (01) ==
LOC: ERS 20:22
DX: S52.501A Unspecified fracture of the lower end of right radius, initial encounter for closed fracture (principal); S05.31XA Ocular laceration without prolapse or loss of intraocular tissue, right eye, initial encounter; S01.01XA Laceration without foreign body of scalp, initial encounter; I10 Essential (primary) hypertension; I48.91 Unspecified atrial fibrillation; Z79.82 Long term (current) use of aspirin; Z23 Encounter for immunization; W04.XXXA Fall while being carried or supported by other persons, initial encounter
CPT/HCPCS: 12051; 29125; 70450; 80053; 85025; 96365; 96375; J0690; J2270; J2405; J3490

== ENCOUNTER 2024-02-19 07:51 | Outpatient (CLI) | payer MEDICARE | END 2024-02-19 07:52 | disposition home or self-care (01) | LOC: NM 07:51 | PROVIDERS: ATTEND Psychiatry & Neurology Neurology | DX: G20.C Parkinsonism, unspecified (principal) | CPT/HCPCS: 78803; A9584 ×2 ==

== ENCOUNTER 2024-08-11 20:08 | Emergency (ER) | payer MEDICARE ==
[2024-08-11] MEDS ORDERED: Acetaminophen 500 MG TAB ONE (21:05)
== END 2024-08-12 03:48 | disposition home or self-care (01) ==
LOC: ERS 20:08
DX: S72.115A Nondisplaced fracture of greater trochanter of left femur, initial encounter for closed fracture (principal); I10 Essential (primary) hypertension; I48.91 Unspecified atrial fibrillation; W01.0XXA Fall on same level from slipping, tripping and stumbling without subsequent striking against object, initial encounter; Y93.01 Activity, walking, marching and hiking; Z86.73 Personal history of transient ischemic attack (TIA), and cerebral infarction without residual deficits
CPT/HCPCS: 71045; 72170

== ENCOUNTER 2024-09-27 10:28 | Inpatient (IN) | payer MEDICARE ==
[2024-09-27 11:13] LABS: #Basophils 0.06 10x3/uL (0.0-0.2); %Basophils 0.8 % (0.0-1.0); %Eosinophils 0.9 % (0.0-10.0); %Lymphocytes 24.8 % (21.0-51.0); %Neutrophils 66.1 % (42.0-75.0); Hematocrit 35.3 % (36.0-47.0); Hemoglobin 12.1 g/dL (12.0-16.0); Mean Corpuscular HGB CONC 34.3 g/dL (32.0-36.0); Mean Corpuscular Hemoglobin 30.9 pg (27.0-31.0); Mean Corpuscular Volume 90.3 fL (78.0-98.0); Platelet Count 230 10x3/uL (130-400); RBC Distribution Width 12.3 % (11.5-14.5); Red Blood Cell (RBC) Count 3.91 mill/uL (4.20-5.40)
[2024-09-27 11:17] LABS: Bacteria/HPF None Seen HPF (None Seen); Bilirubin Negative (Negative); Blood, Urine Negative (Negative); CAUTI Indications for Culture Alt mental st,lethar; Clarity Clear (Clear); Glucose, Urine (Dipstick) Greater than 1000 mg/dL (Negative); Ketone, Urine Negative (Negative); Leukocyte Negative Leu/uL (Negative); Nitrite Negative (Negative); Protein, Urine (Dipstick) Negative (Neg-Trace); RBC/HPF 0-3 HPF (0-3); Squamous Epithelial 0-3 HPF (0-3); Urobilinogen Normal mg/dL (Less than 2); pH, Urine 5.5 (5.0-9.0)
[2024-09-27 11:23] LABS: Urine Culture Reflex No No
[2024-09-27 11:33] LABS: ALT (SGPT) 13 U/L (8-55); AST (SGOT) 10 U/L (5-34); Albumin 3.4 g/dL (3.4-4.8); Alkaline Phosphatase 146 U/L (40-110); Anion Gap 11 mmol/L (10-20); BUN (Urea Nitrogen) 12 mg/dL (9.8-20.1); Bilirubin, Total 0.3 mg/dL (0.2-1.2); Calc. Creatinine Clearance 0 mL/min (70-130); Calcium 12.7 mg/dL (7.8-10.44); Carbon Dioxide 27 mmol/L (23-31); Chloride 103 mmol/L (98-107); Estimated GFR 79; Glucose 119 mg/dL (83-110); Potassium 3.6 mmol/L (3.5-5.1); Protein, Total 6.4 g/dL (5.8-8.1); Sodium 137 mmol/L (136-145)
[2024-09-27 12:13] LABS: T4 8.26 ug/dL (4.87-11.72); Thyroid Stimulating Hormone 1.8361 uIU/mL (0.35-4.94)
[2024-09-27] MEDS ORDERED: traMADol HCl 50 MG TAB PO PRN (14:12)
[2024-09-27] MEDS ORDERED: Calcium Carbonate 500 MG ChewTAB PO PRN (14:17)
[2024-09-27] MEDS ORDERED: Senokot S 8.6-50 MG TAB PO PRN (14:17)
[2024-09-27] MEDS ORDERED: Ondansetron PF 4 MG/2 ML Vial IVP PRN (14:17)
[2024-09-27 15:36] VITALS: BMI 25.7
[2024-09-27] MEDS: Sodium Chloride 0.9% 1,000 ML IV SCH ×2 (15:44)
[2024-09-27] MEDS: Dronedarone HCl 400 MG TAB PO SCH (16:56)
[2024-09-27] MEDS: Apixaban 2.5 MG TAB PO SCH (20:09)
[2024-09-27] MEDS: Ezetimibe 10 MG TAB PO SCH (20:09)
[2024-09-27] MEDS: Amlodipine 5 MG TAB PO SCH (20:10)
[2024-09-27] MEDS: Atorvastatin Calcium 40 MG TAB PO SCH (20:10)
[2024-09-28 06:32] LABS: #Basophils 0.03 10x3/uL (0.0-0.2); %Basophils 0.6 % (0.0-1.0); %Eosinophils 1.9 % (0.0-10.0); %Lymphocytes 40.2 % (21.0-51.0); %Monocytes 8.9 % (0.0-10.0); Hematocrit 31.9 % (36.0-47.0); Hemoglobin 10.9 g/dL (12.0-16.0); Mean Corpuscular HGB CONC 34.2 g/dL (32.0-36.0); Mean Corpuscular Hemoglobin 30.5 pg (27.0-31.0); Mean Corpuscular Volume 89.4 fL (78.0-98.0); Mean Platelet Volume 9.4 fL (7.4-10.4); Platelet Count 197 10x3/uL (130-400); RBC Distribution Width 12.1 % (11.5-14.5); Red Blood Cell (RBC) Count 3.57 mill/uL (4.20-5.40)
[2024-09-28 06:47] LABS: ALT (SGPT) 11 U/L (8-55); AST (SGOT) 10 U/L (5-34); Albumin 2.9 g/dL (3.4-4.8); Alkaline Phosphatase 119 U/L (40-110); Anion Gap 9 mmol/L (10-20); BUN (Urea Nitrogen) 12 mg/dL (9.8-20.1); Bilirubin, Total 0.2 mg/dL (0.2-1.2); Calc. Creatinine Clearance 83 mL/min (70-130); Calcium 11.8 mg/dL (7.8-10.44); Carbon Dioxide 23 mmol/L (23-31); Chloride 110 mmol/L (98-107); Estimated GFR 91; Globulin 2.5 g/dL (2.4-3.5); Glucose 90 mg/dL (83-110); Potassium 3.5 mmol/L (3.5-5.1); Protein, Total 5.4 g/dL (5.8-8.1); Sodium 138 mmol/L (136-145)
[2024-09-28] MEDS: Pantoprazole 40 MG DR.TAB PO SCH (08:30)
[2024-09-28] MEDS: Aspirin 81 mg Enteric Coated Tablet PO SCH (08:30)
[2024-09-28] MEDS: Propranolol HCl LA 80 MG CAP PO SCH (08:30)
[2024-09-28] MEDS: Venlafaxine HCl XR 75 MG CAP PO SCH (08:30)
[2024-09-28] MEDS: Aripiprazole 10 MG TAB PO SCH (08:30)
[2024-09-28] MEDS: Sodium Bicarbonate 50 MEQ in Sodium Chloride 0.45% 1,000 ML IV SCH (17:41)
[2024-09-28] MEDS: NIFEdipine XL 60 MG ER.TAB PO SCH (20:56)
[2024-09-28] MEDS: Losartan 25 MG TAB PO SCH (20:57)
[2024-09-29] MEDS: hydrALAZINE 25 MG TAB PO SCH ×2 (00:28→10:10)
[2024-09-29 08:10] LABS: #Basophils 0.06 10x3/uL (0.0-0.2); %Basophils 1.1 % (0.0-1.0); %Eosinophils 2.6 % (0.0-10.0); %Lymphocytes 35.4 % (21.0-51.0); %Monocytes 7.2 % (0.0-10.0); %Neutrophils 53.5 % (42.0-75.0); Hematocrit 30.8 % (36.0-47.0); Hemoglobin 10.7 g/dL (12.0-16.0); Mean Corpuscular HGB CONC 34.7 g/dL (32.0-36.0); Mean Corpuscular Hemoglobin 30.7 pg (27.0-31.0); Mean Corpuscular Volume 88.5 fL (78.0-98.0); Mean Platelet Volume 8.9 fL (7.4-10.4); Platelet Count 198 10x3/uL (130-400); RBC Distribution Width 12.1 % (11.5-14.5); Red Blood Cell (RBC) Count 3.48 mill/uL (4.20-5.40)
[2024-09-29 08:27] LABS: Anion Gap 8 mmol/L (10-20); BUN (Urea Nitrogen) 10 mg/dL (9.8-20.1); Calc. Creatinine Clearance 96 mL/min (70-130); Calcium 11.3 mg/dL (7.8-10.44); Carbon Dioxide 24 mmol/L (23-31); Chloride 106 mmol/L (98-107); Estimated GFR 95; Glucose 98 mg/dL (83-110); Phosphorus 1.9 mg/dL (2.3-4.7); Potassium 3.4 mmol/L (3.5-5.1); Sodium 135 mmol/L (136-145)
[2024-09-29] MEDS: Losartan 25 MG TAB PO SCH (08:30)
[2024-09-29] MEDS ORDERED: cloNIDine 0.1 MG TAB PO PRN (08:57)
[2024-09-29] MEDS: Potassium Chloride 20 MEQ TAB PO SCH (10:08)
[2024-09-29] MEDS: Dapagliflozin Propanediol 10 MG TAB PO SCH (10:10)
[2024-09-29] MEDS: Primidone 50 MG TAB PO SCH (10:10)
[2024-09-29] MEDS: Potassium Phosphate 30 MMOL in Sodium Chloride 0.9% 250 ML 250 ML IVPB SCH (10:22)
[2024-09-29] MEDS: Zoledronic Acid 4 MG in Sodium Chloride 0.9% 100 ML IVPB SCH (12:26)
[2024-09-29 14:06] LABS: 24 Hr Creatinine 339.07 mg/24 hr; Creatinine, Urine 16.54 mg/dL (15-278)
[2024-09-29] MEDS: Atorvastatin Calcium 40 MG TAB PO SCH (21:12)
[2024-09-29] MEDS: Mirabegron ER 25 MG ER.TAB PO SCH (21:13)
[2024-09-30 05:34] LABS: #Basophils 0.05 10x3/uL (0.0-0.2); %Basophils 0.9 % (0.0-1.0); %Lymphocytes 33.3 % (21.0-51.0); %Neutrophils 53.4 % (42.0-75.0); Hematocrit 30.7 % (36.0-47.0); Hemoglobin 10.9 g/dL (12.0-16.0); Mean Corpuscular HGB CONC 35.5 g/dL (32.0-36.0); Mean Corpuscular Hemoglobin 31.1 pg (27.0-31.0); Mean Corpuscular Volume 87.5 fL (78.0-98.0); Mean Platelet Volume 9.1 fL (7.4-10.4); Platelet Count 201 10x3/uL (130-400); Red Blood Cell (RBC) Count 3.51 mill/uL (4.20-5.40)
[2024-09-30 05:59] LABS: Albumin 2.9 g/dL (3.4-4.8); Anion Gap 7 mmol/L (10-20); BUN (Urea Nitrogen) 10 mg/dL (9.8-20.1); BUN/Creatinine Ratio 15.87; Calc. Creatinine Clearance 76 mL/min (70-130); Calcium 10.4 mg/dL (7.8-10.44); Carbon Dioxide 26 mmol/L (23-31); Chloride 105 mmol/L (98-107); Estimated GFR 90; Glucose 96 mg/dL (83-110); Phosphorus 2.3 mg/dL (2.3-4.7); Potassium 3.3 mmol/L (3.5-5.1); Sodium 135 mmol/L (136-145)
[2024-09-30] MEDS: Docusate 100 MG CAP PO SCH (08:45)
[2024-09-30] MEDS: Potassium Chloride 20 MEQ TAB PO SCH (08:46)
[2024-09-30] MEDS ORDERED: Spironolactone 25 MG TAB PO SCH (09:00)
[2024-10-01 05:29] LABS: #Basophils 0.05 10x3/uL (0.0-0.2); %Basophils 0.7 % (0.0-1.0); %Eosinophils 2.2 % (0.0-10.0); %Lymphocytes 20.1 % (21.0-51.0); %Neutrophils 67.6 % (42.0-75.0); Hematocrit 31.1 % (36.0-47.0); Hemoglobin 10.7 g/dL (12.0-16.0); Mean Corpuscular HGB CONC 34.4 g/dL (32.0-36.0); Mean Corpuscular Hemoglobin 30.4 pg (27.0-31.0); Mean Corpuscular Volume 88.4 fL (78.0-98.0); Mean Platelet Volume 9.1 fL (7.4-10.4); Platelet Count 192 10x3/uL (130-400); RBC Distribution Width 12.2 % (11.5-14.5); Red Blood Cell (RBC) Count 3.52 mill/uL (4.20-5.40)
[2024-10-01 09:12] LABS: Anion Gap 9 mmol/L (10-20); BUN (Urea Nitrogen) 8 mg/dL (9.8-20.1); Calc. Creatinine Clearance 91 mL/min (70-130); Calcium 9.8 mg/dL (7.8-10.44); Carbon Dioxide 23 mmol/L (23-31); Chloride 104 mmol/L (98-107); Estimated GFR 93; Glucose 130 mg/dL (83-110); Potassium 3.9 mmol/L (3.5-5.1); Sodium 132 mmol/L (136-145)
[2024-10-01 10:42] VITALS: BP 112/68; TEMP 98
[2024-10-04 23:07] LABS: Metanephrine,Plasma <25.0 pg/mL (0.0-88.0); Normetanephrine,Pl <25.0 pg/mL (0.0-285.2)
== END 2024-10-01 11:00 | disposition home or self-care (01) | DRG 643 ==
LOC: ERS 10:28 → SUATTDRO 10:28 → T4-A 14:13
PROVIDERS: ADMIT Internal Medicine; ATTEND Internal Medicine
DX: E21.0 Primary hyperparathyroidism (principal); G93.41 Metabolic encephalopathy; I50.32 Chronic diastolic (congestive) heart failure; M80.852A Other osteoporosis with current pathological fracture, left femur, initial encounter for fracture; E87.6 Hypokalemia; E04.1 Nontoxic single thyroid nodule; F10.90 Alcohol use, unspecified, uncomplicated; F39 Unspecified mood [affective] disorder; E78.5 Hyperlipidemia, unspecified; I48.91 Unspecified atrial fibrillation; I11.0 Hypertensive heart disease with heart failure; N20.0 Calculus of kidney; Z87.440 Personal history of urinary (tract) infections; Z86.73 Personal history of transient ischemic attack (TIA), and cerebral infarction without residual deficits; Z90.49 Acquired absence of other specified parts of digestive tract; Z90.711 Acquired absence of uterus with remaining cervical stump; Z88.8 Allergy status to other drugs, medicaments and biological substances
CPT/HCPCS: 36415; 36416; 70450; 74176; 76536; 76770; 80048; 80053; 80069; 81001; 82088; 82306; 82310; 82330; 82340; 82570; 83835; 83970; 84244; 84436; 84443; 85025; 93005; J3489; J7030; J7050

== ENCOUNTER 2024-10-26 07:42 | Outpatient (CLI) | payer MEDICARE ==
[2024-10-26] MEDS ORDERED: Iopamidol 370 76% 100 ML VIAL ONE (09:36)
== END 2024-10-26 07:43 | disposition home or self-care (01) ==
LOC: NM 07:42
PROVIDERS: ATTEND Otolaryngology Otolaryngic Allergy
DX: E21.3 Hyperparathyroidism, unspecified (principal); E04.2 Nontoxic multinodular goiter; R94.8 Abnormal results of function studies of other organs and systems
CPT/HCPCS: 70492; 78072; A9500